=== PATIENT | female | born 1970 | race Caucasian/White ===

== ENCOUNTER 2017-07-13 06:44 | Emergency (ER) | payer BC ==
[~2017-07-13] VITALS: Ht 165.1 cm; Wt 80.9 kg
[2017-07-13 06:45] VITALS: TEMP 98
[2017-07-13] MEDS ORDERED: SYNTHROID 0.0.025 MG PO (07:13)
[2017-07-13] MEDS ORDERED: COZAAR 50MG50 MG/TAB PO (07:14)
[2017-07-13] MEDS ORDERED: ZYRTEC 10MG10 MG PO (07:15)
[2017-07-13 07:19] LABS: COLLECTION METHOD CLEAN CATCH
[2017-07-13 07:29] LABS: PH 6 (5-8); SQUAMOUS EPITHELIAL 0-2 /hpf; URINE APPEARANCE Clear; URINE BACTERIA None Seen /hpf; URINE BILIRUBIN Negative (NEGATIVE); URINE BLOOD Negative (NEGATIVE); URINE COLOR Yellow; URINE GLUCOSE Negative (NEGATIVE); URINE KETONE Negative (NEGATIVE); URINE LEUKOCYTE ESTERASE Negative (NEGATIVE); URINE NITRATE Negative (NEGATIVE); URINE PROTEIN(semi-quant) Negative (NEGATIVE); URINE RBC 0-2 /hpf; URINE UROBILINOGEN Negative (NEGATIVE)
[2017-07-13 07:36] LABS: BASO # 0.1 (0.0-0.2); BASO % 1.2 % (0.0-2.0); EOS # 0.1 (0.0-0.7); EOS % 2.4 % (0-4.0); GRAN # 3.6 (1.4-6.5); GRAN % 60.6 % (42.2-75.2); HEMOGLOBIN 13.5 g/dl (12.5-16.0); LYMPH # 1.7 (1.2-3.4); LYMPH % 29.5 % (20.0-51.0); MEAN CELL VOLUME 90 fl (80.0-100.0); MEAN CORPUSCULAR HEMOGLOBIN 31 pg (27.0-31.0); MEAN CORPUSCULAR HGB CONC 34 g/dl (33.0-37.0); MEAN PLATELET VOLUME 10.3 fl (7.4-10.4); MONO # 0.4 (0.1-0.6); MONO % 6.1 % (1.7-9.3); PLATELET COUNT 247 K/mm3 (130-400); RED BLOOD COUNT 4.43 M/mm3 (4.10-5.30); REDCELL DISTRIBUTION WIDTH-CV 12.8 % (11.5-14.5)
[2017-07-13 07:44] LABS: ALANINE AMINOTRANSFERASE 28 U/L (9-52); ALBUMIN 3.9 gm/dL (3.5-5.0); ALKALINE PHOSPHATASE 57 U/L (50-136); ANION GAP 12 mmol/L (7-16); AST,SGOT 20 U/L (15-37); BILIRUBIN,TOTAL 0.3 mg/dL (0.0-1.0); BLOOD UREA NITROGEN 14 mg/dL (7-17); CALCIUM 8.6 mg/dL (8.4-10.2); CARBON DIOXIDE 26 mmol/L (22-30); CHLORIDE 105 mmol/L (98-107); CREATININE, serum 0.77 mg/dL (0.52-1.25); GLUCOSE 119 mg/dL (74-106); POTASSIUM 3.7 mmol/L (3.4-5.0); SODIUM 143 mmol/L (137-145); TOTAL PROTEIN 7.6 gm/dL (6.4-8.2)
[2017-07-13 07:48] LABS: C-REACTIVE PROTEIN < 0.5 mg/dL (0.0-0.9)
[2017-07-13] MEDS ORDERED: NORCO 325 MG-51 TAB PO (08:44)
[2017-07-13 09:34] VITALS: BP 145/80; PULSE 61
== END 2017-07-13 09:36 | disposition home or self-care (01) ==
LOC: COL.ER 06:44
PROVIDERS: Physician Assistant
DX: R10.31 Right lower quadrant pain (principal); I10 Essential (primary) hypertension; E03.9 Hypothyroidism, unspecified; Z87.442 Personal history of urinary calculi
CPT/HCPCS: J1885; J2405; J7030; Q9967

== ENCOUNTER 2020-04-26 11:32 | Day surgery (SDC) | payer OTHER ==
[2020-04-26] VITALS (7 sets, daily range): BP systolic 114–154; BP diastolic 48–81; PULSE 65–80; TEMP 97.2–98.2
[~2020-04-26] VITALS: Ht 165.1 cm; Wt 87.3 kg
[~2020-04-26 11:32] MED LIST: COZAAR 50MG50 MG/TAB PO; NORCO 325 MG-51 TAB PO; SYNTHROID 0.0.025 MG PO; ZYRTEC 10MG10 MG PO
[2020-04-26] MEDS ORDERED: NORCO 325 MG-51 TAB PO (15:38)
--- NOTE | 2020-04-26 16:45 | NUR ---
Report received from LINH Campos, in PACU.
--- NOTE | 2020-04-26 16:50 | NUR ---
Transfer pt from PACU to [place] [id number] via cart and this RN. Monitors on and alarms set. Call light within reach. Pt states pain is "tolerable" at 4/10. No nausea reported. Pt requests apple juice and pudding and crackers.
--- NOTE | 2020-04-26 17:15 | NUR ---
Pt taking food well and asks for more apple juice.
--- NOTE | 2020-04-26 17:40 | NUR ---
Pt ambulates with this RN assist to restroom without complications.
--- NOTE | 2020-04-26 17:50 | NUR ---
Pt returns from restroom via ambulation and this RN assist without complications.
--- NOTE | 2020-04-26 17:53 | NUR ---
Pt requests [facility] for pain control on way home. Pain remains at same level as before: 07/09.
--- NOTE | 2020-04-26 18:11 | NUR ---
Discharge instructions given to pt. All questions answered to her satisfaction. Handed to her are a thank you card, discharge instructions, diagnosis information, and an appt reminder card for her to call [facility] tomorrow.
--- NOTE | 2020-04-26 18:31 | NUR ---
Pt transferred out of hospital via wheelchair and this RN to private vehicle driven by family member.
== END 2020-04-26 18:31 | disposition home or self-care (01) ==
LOC: SDCO 11:32
DX: K40.20 Bilateral inguinal hernia, without obstruction or gangrene, not specified as recurrent (principal); Z90.710 Acquired absence of both cervix and uterus; Z79.899 Other long term (current) drug therapy; Z79.51 Long term (current) use of inhaled steroids; I10 Essential (primary) hypertension; E78.00 Pure hypercholesterolemia, unspecified; E03.9 Hypothyroidism, unspecified; M19.90 Unspecified osteoarthritis, unspecified site
CPT/HCPCS: C1781; J0690; J1100; J1170; J1885; J2405; J2704; J3010; J7120